=== PATIENT | male | born 1975 | race Hispanic/Latino ===

== ENCOUNTER 2020-11-14 14:44 | Emergency (ER) | payer BC, SELFPAY ==
--- NOTE | 2020-11-14 14:57 | ED.CHESTPAIN ---
HPI - Chest Pain General Chief Complaint: Chest Pain Stated Complaint: chest pain/sob/blurred vision Time Seen by Provider: 11/14/20 14:57 Source: patient and RN notes reviewed Mode of arrival: ambulatory Limitations: no limitations History of Present Illness HPI narrative: 45-year-old presents to the [facility] with complaints of blurry vision, fatigue and dizziness for approximately 1 week. Yesterday started with some increased fatigue, chest pain and pressure on the left side radiating into his left jaw along with SOB. Patient denies any past medical or surgical history. Denies family history of cardiac issues. Patient skin is clammy. Lungs are clear. Denies fever, denies abdominal pain. Denies nausea or vomiting. States that he has a lump in the Epigastric area that If I push on it, everything feels a little better. MD complaint: chest pain and chest discomfort Related Data Home Medications Medication Instructions Recorded Confirmed No Home Medications 11/14/20 11/14/20 Allergies Allergy/AdvReac Type Severity Reaction Status Date / Time No Known Allergies Allergy Verified 11/14/20 15:07 Review of Systems Review of Systems: All systems reviewed & are unremarkable except as noted in HPI and below Constitutional: Constitutional: Reports no additional constitutional complaints, Denies chills and Denies fever(s) Eyes: Eyes: Reports no additional eye complaints ENT: Reports system reviewed and no additional complaints, except as documented Cardiovascular: Cardiovascular: Reports as per HPI, Reports chest pain and Reports radiating jaw, neck or arm pain Respiratory: Respiratory: Reports as per HPI and Reports dyspnea Gastrointestinal: Gastrointestinal: Reports no additional gastrointestinal complaints, Denies abdominal pain, Denies nausea and Denies vomiting Musculoskeletal: Musculoskeletal: Reports no additional musculoskeletal complaints, Denies back pain, Denies myalgias, Denies arthralgias, Denies joint swelling and Denies muscle cramps Integumentary/Breasts: Skin/Breast: Reports system reviewed and no additional complaints, except as docu and Denies rash Neurologic: Reports as per HPI, Reports dizziness, Reports syncope (Patient states that he feels he is about to pass out) and Reports weakness (Generalized weakness increasing over the last week) Psychiatric: Psychiatric: Reports no additional psychiatric complaints Endocrine: Endocrine: Reports no additional endocrine complaints Allergic/Immunologic: Allergic/Immunologic: Reports no additional allergic/immunologic complaints [facility] Social History Social History Gender identity (if verbalized by the patient): Male Comments At the time of my signature, I reviewed and agree with the nursing past medical, surgical, social, and family history. There is no relevant family history pertinent to the patient complaint. Patient denied any past medical or surgical history Exam Const: General: alert Nutritional Appearance: well nourished Orientation/consciousness: patient oriented x3 Limitations: no limitations HENMT: Head: normal to inspection Eyes: Pupils: Equal, round and reactive pupils present Neck: Neck: normal visual inspection, no lymphadenopathy and no meningeal signs Chest: Chest palpation & inspection: normal inspection of the chest Resp: Effort & Inspection: normal respiratory effort and no use of accessory muscles Auscultation: clear to auscultation bilaterally, no crackles, no rales, no rhonchi and no wheezes Cardio: Rate: regular rate Rhythm: regular rhythm Peripheral pulses: radial pulses present GI: GI Palp: Yes Soft to palpation and No Tenderness to palpation present (GI) Back/Spine/Pelvis: Back: no CVA tenderness Skin: General skin exam: normal color Rashes: no rashes Neuro: General: patient oriented x3, moves all extremities and no meningeal signs Cranial nerves: Yes [place]
[2020-11-14 15:00] VITALS: BP 118/85; PULSE 84; RESP 16; TEMP 37.1; O2SAT 99
--- NOTE | 2020-11-14 15:02 | ECG_ITS ---
Measurements Intervals [place] Rate: 65 P: 48 TX: 179 QRS: 57 QRSD: 86 T: 33 QT: 372 QTc: 387 Interpretive Statements SINUS RHYTHM POSSIBLE LEFT ATRIAL ENLARGEMENT INCOMPLETE RIGHT BUNDLE BRANCH BLOCK BORDERLINE ECG Electronically Signed On 11-14-2020 17:07:33 CDT by Moustapha Quiñonez D.O.
--- NOTE | 2020-11-14 15:22 | PC.NURSE ---
asa 324mg, 81mg x4 po chew, vorb topper wide area network engineer, given at 1510
== END 2020-11-14 15:21 | disposition short-term general hospital (02) ==
PROVIDERS: Emergency Provider Nurse Practitioner
DX: R07.9 Chest pain, unspecified (principal)
CPT/HCPCS: 93005; 99203; A9270; G0463

== ENCOUNTER 2020-11-14 15:39 | Emergency (ER) | payer BC, SELFPAY ==
[2020-11-14] VITALS (23 sets, daily range): BP systolic 111–138; BP diastolic 74–93; PULSE 51–68; RESP 10–24; O2SAT 96–100
--- NOTE | ~2020-11-14 | XR_ITS ---
EXAMINATION: XR chest 2V DATE: 11/14/2020 16:06 INDICATION: Midsternal chest pain TECHNIQUE: PA and lateral views of the chest were obtained. COMPARISON: None FINDINGS: The lungs are clear with no focal airspace opacities, pulmonary edema, pleural effusion or pneumothor ax. The cardiomediastinal silhouette is normal. Cholecystectomy clips in right upper quadrant. Mild t horacic spondylosis. IMPRESSION: 1. No acute cardiopulmonary disease. Reviewed, dictated and finalized at location A.
--- NOTE | 2020-11-14 15:45 | ECG_ITS ---
Measurements Intervals [place] Rate: 65 P: 32 HI: 175 QRS: 50 QRSD: 82 T: 19 QT: 403 QTc: 420 Interpretive Statements SINUS RHYTHM POSSIBLE LEFT ATRIAL ENLARGEMENT INCOMPLETE RIGHT BUNDLE BRANCH BLOCK BORDERLINE ECG Electronically Signed On 11-14-2020 17:08:38 CDT by Moustapha Quiñonez D.O.
[2020-11-14 16:35] LABS: Basophils Percent Auto 0.4 % (0.2-1.2); Eosinophils Absolute Auto 0.1 K/mm3 (0-0.3); Eosinophils Percent Auto 2.1 % (0-4.4); Hematocrit 40.1 % (42.0-52.0); Hemoglobin 13.8 g/dL (14.0-18.0); Immature Granulocyte Absolute 0.01 K/mm3 (0.00-0.031); Immature Granulocyte Percent A 0.2 % (0-0.5); Lymphocytes Absolute Auto 1.49 K/mm3 (0.9-3.2); Lymphocytes Percent Auto 30.9 % (18.3-44.2); Mean Corpuscular HGB Conc 34.4 g/dl (32-36); Mean Corpuscular Hemoglobin 30.8 pg (26-34); Mean Corpuscular Volume 89.5 fl (80-100); Mean Platelet Volume 9.6 fl (7.4-10.4); Monocytes Absolute Auto 0.3 K/mm3 (0.1-0.6); Monocytes Percent Auto 5.6 % (2.6-8.5); Neutrophils Absolute Auto 2.9 K/mm3 (1.3-6.7); Neutrophils Percent Auto 60.8 % (45.5-73.1); Platelet Count Result 243 k/mm3 (150-375); Red Blood Count 4.48 M/mm3 (4.6-6.20); Red Cell Distribution Width 12.2 % (11.5-14.5); White Blood Count 4.8 K/mm3 (4.5-10.0)
[2020-11-14 16:44] LABS: Anion Gap 7 mmol/L (8-16); Blood Urea Nitrogen 16 mg/dL (9-20); Carbon Dioxide 25 mmol/L (22-30); Chloride 109 mmol/L (98-107); Estimated CRCL calculation 106 ml/min; Estimated Glomerular Filt Rate > 60; Glucose 97 mg/dL (75-110); Sodium 141 mmol/L (137-145)
[2020-11-14 16:46] LABS: INR 0.9
[2020-11-14 16:47] LABS: Partial Thromboplastin Time 25.6 SECONDS (22.3-36.8)
[2020-11-14 16:57] LABS: Troponin I < 0.012 ng/mL (0.000-0.034)
[2020-11-14] MEDS: BELLADONNA ALK/PHENOB ELIX 10 ML, MAG HYDROX/ALUMINUM HYD/SIMETH 30 ML, LIDOCAINE HCL 2... PO (17:01)
--- NOTE | 2020-11-14 17:46 | ED.CHESTPAIN ---
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 it does not bother him too much but did today and he experienced some neck discomfort as well which is why he came to the hospital No cough, no fever, no palpitations, no diaphoresis, no nausea or vomiting He does note he has felt very tired lately He saw his PCP about similar symptoms previously and was treated with omeprazole which did help but did not completely alleviate the problem which was diagnosed as GERD Related Data Allergies Allergy/AdvReac Type Severity Reaction Status Date / Time No Known Allergies Allergy Verified 11/14/20 15:45 Review of Systems Review of Systems: All systems reviewed & are unremarkable except as noted in HPI and below Constitutional: Constitutional: Reports no additional constitutional complaints, Denies chills, Reports fatigue, Denies fever(s), Denies headache(s) and Reports weakness Eyes: Eyes: Reports no additional eye complaints and Denies change in vision ENT: Denies headache(s) and Denies sore throat Cardiovascular: Cardiovascular: Reports chest pain, Reports radiating jaw, neck or arm pain and Denies dyspnea Respiratory: Respiratory: Denies cough and Denies dyspnea Gastrointestinal: Gastrointestinal: Denies abdominal pain, Denies diarrhea and Denies vomiting Genitourinary: Genitourinary: Denies dysuria and Denies urinary frequency Musculoskeletal: Musculoskeletal: Denies deformity, Denies arthralgias, Denies joint swelling and Denies numbness Integumentary/Breasts: Skin/Breast: Denies rash and Denies wounds Neurologic: Denies headache(s), Denies focal weakness, Denies numbness and Reports weakness Psychiatric: Psychiatric: Reports no additional psychiatric complaints Endocrine: Endocrine: Reports no additional endocrine complaints Hematologic/Lymphatic: Hematologic/Lymphatic: Reports no additional hematologic/lymphatic complaints Allergic/Immunologic: Allergic/Immunologic: Reports no additional allergic/immunologic complaints [facility] Social History Social History Gender identity (if verbalized by the patient): Male Exam Const: General: cooperative, no acute distress and alert Orientation/consciousness: patient oriented x3 (alert) HENMT: Head: normal to inspection, normocephalic and atraumatic Ears: external ears normal General nose exam: no epistaxis Eyes: Conjunctivae: conjunctivae normal EOM: EOMs intact bilaterally Neck: Neck: normal visual inspection, supple and no JVD Chest: Chest palpation & inspection: tenderness (Does reproduce his symptoms to some degree) costochondral junction Resp: Effort & Inspection: normal respiratory effort and not labored Auscultation: clear to auscultation bilaterally and other (BS =) Cardio: Rate: regular rate Rhythm: regular rhythm Heart sounds: no murmurs GI: GI Palp: Yes Soft to palpation, No Tenderness to palpation present (GI), No Guarding due to palpation present (GI) and No Rebound tenderness present Skin: General skin exam: normal color and no rashes or lesions noted Neuro: General: patient oriented x3 (alert) and moves all extremities Speech: normal speech Extrem: General: normal to inspection and no pedal edema Psych: Affect: normal affect Course Vital Signs Vital signs: Vital Signs Pulse Rate 68 11/14/20 15:37 Respiratory Rate 17 11/14/20 15:37 Blood Pressure 111/74 11/14/20 15:37 Pulse Oximetry
[2020-11-14 19:45] LABS: Troponin I < 0.012 ng/mL (0.000-0.034)
== END 2020-11-14 20:18 | disposition home or self-care (01) ==
PROVIDERS: Emergency Medicine; Emergency Provider Emergency Medicine
DX: R07.89 Other chest pain (principal); K21.9 Gastro-esophageal reflux disease without esophagitis; I45.10 Unspecified right bundle-branch block; R94.31 Abnormal electrocardiogram [ECG] [EKG]
CPT/HCPCS: 36415; 71046; 80048; 84484; 85025; 85610; 85730; 93005; 99284; A9270

== ENCOUNTER 2021-07-26 19:20 | Emergency (ER) | payer OTHER, SELFPAY ==
--- NOTE | ~2021-07-26 | XR_ITS ---
EXAMINATION: XR chest 2V DATE: 07/26/2021 19:54 INDICATION: Chest pain TECHNIQUE: PA and lateral views of the chest are obtained. COMPARISON: 11/14/2020 FINDINGS: The lungs are free of acute opacities. There is no pleural effusion or pneumothorax. The ca rdiomediastinal silhouette is normal. There is mild thoracic spondylosis. IMPRESSION: 1. No acute cardiopulmonary abnormality. Reviewed, dictated and finalized at location F. [employer]
--- NOTE | 2021-07-26 19:23 | ECG_ITS ---
Measurements Intervals [place] Rate: 72 P: 44 MO: 176 QRS: 43 QRSD: 78 T: 35 QT: 374 QTc: 410 Interpretive Statements SINUS RHYTHM INCOMPLETE RIGHT BUNDLE BRANCH BLOCK BASELINE ARTIFACT- I, II, III, V6 BORDERLINE ECG Electronically Signed On 07-26-2021 20:57:03 TRAINING AND DEVELOPMENT COORDINATOR by Moustapha Quiñonez D.O.
[2021-07-26 19:37] VITALS: BP 140/98; PULSE 70; PULSE 83; RESP 20; TEMP 36.8; O2SAT 100
[2021-07-26 19:46] LABS: Basophils Absolute Auto 0.1 K/mm3 (0.0-0.1); Basophils Percent Auto 0.8 % (0.2-1.2); Eosinophils Absolute Auto 0.1 K/mm3 (0-0.3); Eosinophils Percent Auto 2.2 % (0-4.4); Hematocrit 44.3 % (42.0-52.0); Hemoglobin 14.9 g/dL (14.0-18.0); Immature Granulocyte Absolute 0.01 K/mm3 (0.00-0.031); Immature Granulocyte Percent A 0.2 % (0-0.5); Lymphocytes Absolute Auto 1.98 K/mm3 (0.9-3.2); Lymphocytes Percent Auto 32.9 % (18.3-44.2); Mean Corpuscular HGB Conc 33.6 g/dl (32-36); Mean Corpuscular Hemoglobin 31.1 pg (26-34); Mean Corpuscular Volume 92.5 fl (80-100); Mean Platelet Volume 9.8 fl (7.4-10.4); Monocytes Absolute Auto 0.3 K/mm3 (0.1-0.6); Monocytes Percent Auto 5.5 % (2.6-8.5); Neutrophils Absolute Auto 3.5 K/mm3 (1.3-6.7); Neutrophils Percent Auto 58.4 % (45.5-73.1); Platelet Count Result 256 k/mm3 (150-375); Red Blood Count 4.79 M/mm3 (4.6-6.20); Red Cell Distribution Width 12.2 % (11.5-14.5)
[2021-07-26] MEDS: ASPIRIN 81 MG CHEWABLE TABLET 324 MG PO (19:46)
[2021-07-26 19:55] LABS: Prothrombin Time 12.4 Seconds (11.1-14.7)
[2021-07-26 19:56] LABS: Partial Thromboplastin Time 27.2 SECONDS (22.3-36.8)
[2021-07-26 20:12] LABS: Alanine Aminotransferase 21 U/L (4-50); Albumin Level 4.2 g/dL (3.5-5.1); Alkaline Phosphatase 100 U/L (38-126); Anion Gap 7 mmol/L (8-16); Aspartate Amino Transferase 29 U/L (17-59); Bilirubin,Total 0.3 mg/dL (0.2-1.3); Blood Urea Nitrogen 16 mg/dL (9-20); Carbon Dioxide 28 mmol/L (22-30); Chloride 106 mmol/L (98-107); Estimated CRCL calculation 75 ml/min; Estimated Glomerular Filt Rate > 60; Glucose 99 mg/dL (65-110); Lipase 178 U/L (23-300); Potassium 3.9 mmol/L (3.4-5.0); Sodium 141 mmol/L (137-145)
--- NOTE | 2021-07-26 20:13 | ED.CHESTPAIN ---
HPI - Chest Pain General Chief Complaint: Chest Pain Stated Complaint: epigastric/ Chest pain since 1300 Time Seen by Provider: 07/26/21 19:26 Source: patient History of Present Illness HPI narrative: Patient presents with chest pain. Reports that intermittent symptoms since Friday which she has been managed with a PPI and Pepcid. Today however he had recurrence of his symptoms that started around 1:00 he tried his PPI Pepcid and [place] without relief as well as Tylenol given his symptoms persisted he came to the ER for evaluation. He has not been pain-free since 1:00 this afternoon. His pain is primarily in his epigastric area radiates up into his chest he describes it as a squeezing sensation there are no clear aggravating or alleviating factors. Symptoms are not associated with shortness of breath nausea vomiting or diaphoresis. Denies any significant family history denies any prior cardiac history he denies smoking history. Related Data Home Medications Medication Instructions Recorded Confirmed ergocalciferol (vitamin D2) 07/26/21 famotidine 07/26/21 Allergies Allergy/AdvReac Type Severity Reaction Status Date / Time No Known Allergies Allergy Verified 07/26/21 19:24 Review of Systems Review of Systems: CONSTITUTIONAL: Denies fever, chills, or sweats. EYES: Denies visual changes, redness, or discharge. ENT: Denies rhinorrhea, congestion, sore throat, or otalgia. CARDIOVASCULAR: Denies palpitations, or edema. RESPIRATORY: Denies cough or dyspnea. GASTROINTESTINAL: Denies abdominal pain, nausea, vomiting, or diarrhea. GENITOURINARY: Denies dysuria or hematuria. SKIN: Denies rash or itching. MUSCULOSKELETAL: Denies back pain, joint pain, or myalgia. NEUROLOGIC: Denies headache, numbness, dizziness, or weakness. PSYCHIATRIC: Denies anxiety or depression. All systems reviewed & are unremarkable except as noted in HPI and below PMFSH Social History Social History Gender identity (if verbalized by the patient): Male Exam Narrative: GENERAL: Well-appearing, well-nourished, and in no acute distress. HEAD: Normocephalic, atraumatic. EYES: PERRLA and EOMI. ENT: Nares clear, no rhinorrhea or epistaxis. Mucous membranes moist. NECK: Supple. No masses. No JVD CHEST: Clear to auscultation. No respiratory distress. No wheezes rales or rhonchi HEART: Regular rate and rhythm. No murmur heard. Normal peripheral pulses. ABDOMEN: Soft, nontender, nondistended, normal active bowel sounds. EXTREMITIES: Normal range of motion. No edema. SKIN: Warm, dry, no rash. NEURO: No focal deficits. Alert and oriented x3. PSYCH: Normal mood and affect. Course Reevaluation(s) Reevaluation #1: Patient reports feeling much improved results and plan reviewed with patient. Patient is comfortable outpatient plan. Date: 07/26/21 Time: 21:28 Vital Signs Vital signs: Vital Signs Temperature 36.8 C 07/26/21 19:37 Pulse Rate 83 07/26/21 19:37 Respiratory Rate 20 07/26/21 19:37 Blood Pressure 140/98 H 07/26/21 19:37 Pulse Oximetry 100 07/26/21 19:37 Temperature 36.8 C 07/26/21 19:37 Pulse Rate 78 07/26/21 21:40 Respiratory Rate 16 07/26/21 21:40 Blood Pressure 114/68 07/26/21 21:40 Pulse Oximetry 98 07/26/21 21:40 MDM - Chest Pain MDM Narrative Medical decision making narrative: H&P as above, vss, pt looks clinically well, exam reassuring, labs unremarkable to include troponin several hours after initiation constant symptoms, img unremarkable, additional labs/img considered, symptomatic relief available as needed, on reevaluation pt continues to looks clinically well. Suspect reflux, dns ACS, PE, dissection, pneumothorax, sepsis. plan to tx/monitor as op w/ pcm f/u findings/plan discussed with pt, pt agree/comfortable with plan, return precautions given Lab Data Result diagrams: 07/26/21 19:40 07/26/21 19:40
[2021-07-26 20:24] VITALS: BP 99/75; PULSE 71; RESP 18; O2SAT 100
[2021-07-26 20:24] LABS: Troponin I < 0.012 ng/mL (0.000-0.034)
[2021-07-26] MEDS: MAG HYDROX/AL HYDROX/SIMETH 30 ML UDC PO (20:25)
[2021-07-26] MEDS: LIDOCAINE HCL 2% VISC SOLN 15 ML UDC 20 ML PO (20:27)
[2021-07-26] MEDS: FAMOTIDINE 20 MG/2 ML VIAL IV PUSH (20:28)
[2021-07-26] MEDS: PANTOPRAZOLE SODIUM IV 40 MG VIAL IV PUSH (20:28)
[2021-07-26 21:40] VITALS: BP 114/68; PULSE 78; RESP 16; O2SAT 98
== END 2021-07-26 21:40 | disposition home or self-care (01) ==
PROVIDERS: Emergency Medicine; Emergency Provider Emergency Medicine
DX: K21.9 Gastro-esophageal reflux disease without esophagitis (principal); I45.10 Unspecified right bundle-branch block
CPT/HCPCS: 36415; 71046; 80053; 83690; 84484; 85025; 85610; 85730; 93005; 96374; 96375; 99284; A9270; C9113